=== PATIENT | female | born 1950 | race Caucasian/White ===

== ENCOUNTER 2017-07-21 09:34 | Day surgery (SDC) | payer OTHER, BC ==
[~2017-07-21] VITALS: Ht 170.2 cm; Wt 88.0 kg
[~2017-07-21 09:34] MED LIST: ASPIR 8181 M1 PO; ATORVASTATIN CA20 MG PO; BENADRYL25 MG PO; CALCIUM 600 MG1 EACH PO; CELEBREX200 MG PO; CEPHALEXIN500 MG PO; COUMADIN1 MG PO; CYMBALTA60 MG PO; DIOVAN HCT 31 TABLE1 PO; ENDOCET 5-3251 EACH PO; HYDROCODON-ACE1 EAC7 PO; IRON325 MG PO; JANUMET 50/51 TABLET PO; LIPITOR20 MG PO; LORTAB 5-325 M1 EACH PO; PLAQUENIL200 MG PO; ROCEPHIN2 GM/50 ML IV; TOPROL XL25 MG PO; VALSARTAN-HCTZ1 EAC3 PO; VANCOMYCIN1 GM/250 M IV; VITAMIN B-12250 MCG PO; VITAMIN B-6200 MG PO; ZESTRIL2.5 MG PO; ZOFRAN ODT8 MG PO
[2017-07-21 10:25] LABS: POINT-OF-CARE METER ID UU14174212
[2017-07-21 18:11] LABS: POINT-OF-CARE METER ID UU13113675; POINT-OF-CARE USER ID 515036437
[2017-07-21 19:10] VITALS: BP 143/81
[2017-07-21 20:57] VITALS: BP 147/67
[2017-07-21 21:15] VITALS: BP 127/59
== END 2017-07-21 21:20 | disposition home or self-care (01) ==
LOC: SDC 09:34
PROVIDERS: Podiatrist Foot & Ankle Surgery
DX: M19.072 Primary osteoarthritis, left ankle and foot (principal); I25.10 Atherosclerotic heart disease of native coronary artery without angina pectoris; I10 Essential (primary) hypertension; E66.9 Obesity, unspecified; Z68.31 Body mass index [BMI] 31.0-31.9, adult; E11.65 Type 2 diabetes mellitus with hyperglycemia; E78.2 Mixed hyperlipidemia; R94.31 Abnormal electrocardiogram [ECG] [EKG]; R00.0 Tachycardia, unspecified; Z88.1 Allergy status to other antibiotic agents; Z87.891 Personal history of nicotine dependence
CPT/HCPCS: 73630; 76000; 82948; C1713; C1769; J0131; J1100; J1885; J2250; J2405; J2795; J3010; S0020

== ENCOUNTER 2018-01-12 22:04 | Inpatient (IN) | payer OTHER, BC ==
[~2018-01-12] VITALS: Ht 168.9 cm; Wt 83.1 kg
[2018-01-13 07:12] VITALS: BP 143/82
[2018-01-13 08:19] LABS: HEMOGLOBIN A1c (GLYCOHEMOGLOB) 6.6 % (Below 5.7)
[2018-01-13 12:21] LABS: HEMATOCRIT 34.9 % (36.0-46.0); MCH 36.1 PG (29.0-34.0); MCHC 33.2 G/DL (30.0-36.0); MCV 108.7 FL (83-99); RBC DIS.WIDTH-CV 11.9 % (11.8-14.6); RBC DIS.WIDTH-SD 47.7 % (39-53); WHITE BLOOD COUNT 7.1 K/uL (4.1-10.2)
[2018-01-13 13:07] LABS: HEMOGLOBIN 11.6 G/DL (11.9-15.5); RED BLOOD COUNT 3.21 M/uL (3.80-5.20)
[2018-01-13 15:34] VITALS: BP 128/85
[2018-01-13 20:23] VITALS: BP 106/67
[2018-01-14 00:14] VITALS: BP 120/67
[2018-01-14 04:32] VITALS: BP 116/61
[2018-01-14 06:21] LABS: HEMATOCRIT 39.7 % (36.0-46.0); HEMOGLOBIN 12.9 G/DL (11.9-15.5); MCV 109.7 FL (83-99)
[2018-01-14 06:33] LABS: CHLORIDE 103 MEQ/L (99-109); CREATININE 1.5 MG/DL (0.6-1.3); GFR ESTIMATE (CALCULATED) 37 mL/min/; GLUCOSE 151 mg/dL (70-99); POTASSIUM 4.4 MEQ/L (3.7-5.4); SODIUM 135 MEQ/L (136-147); UREA NITROGEN (BUN) 31 mg/dL (9-23)
[2018-01-14 08:32] VITALS: BP 121/69
[2018-01-14 12:10] VITALS: BP 117/77
[2018-01-14 15:59] VITALS: BP 136/67
[2018-01-14 20:13] VITALS: BP 130/69
[2018-01-15 00:07] VITALS: BP 134/73
[2018-01-15 04:11] VITALS: BP 150/73
[2018-01-15 06:44] LABS: HEMATOCRIT 37.5 % (36.0-46.0); HEMOGLOBIN 12.5 G/DL (11.9-15.5); MCV 109.6 FL (83-99)
[2018-01-15 08:06] VITALS: BP 119/72
[2018-01-15] MEDS ORDERED: DOCUSATE SODIU100 MG PO (08:24)
[2018-01-15] MEDS ORDERED: ENDOCET 5-3251 EACH PO (08:25)
[2018-01-15] MEDS ORDERED: LOVENOX40 MG/0.4 SC (08:25)
[2018-01-15 12:02] VITALS: BP 158/74
== END 2018-01-15 13:42 | DRG 470 ==
LOC: ENRESERV 22:04 → 2SOUTH 01-13 06:41 → ENRESERV 01-13 08:01 → 2SOUTH 01-13 14:55 → 3WEST 01-13 14:56 → 2SOUTH 01-13 16:00 → 3WEST 01-15 13:42
PROVIDERS: Orthopaedic Surgery
PROC: 0SRD0J9 Replacement of Left Knee Joint with Synthetic Substitute, Cemented, Open Approach (ICD-10-PCS; principal; 2018-01-13)
DX: M17.12 Unilateral primary osteoarthritis, left knee (principal); F33.9 Major depressive disorder, recurrent, unspecified; I10 Essential (primary) hypertension; E78.00 Pure hypercholesterolemia, unspecified; E11.9 Type 2 diabetes mellitus without complications; M21.162 Varus deformity, not elsewhere classified, left knee; E66.3 Overweight; K30 Functional dyspepsia; Z79.84 Long term (current) use of oral hypoglycemic drugs; Z68.29 Body mass index [BMI] 29.0-29.9, adult; Z98.1 Arthrodesis status; Z88.5 Allergy status to narcotic agent; Z88.1 Allergy status to other antibiotic agents; Z96.643 Presence of artificial hip joint, bilateral; Z96.651 Presence of right artificial knee joint; Z82.0 Family history of epilepsy and other diseases of the nervous system; Z82.3 Family history of stroke; Z80.49 Family history of malignant neoplasm of other genital organs
CPT/HCPCS: 73560; 80048; 82948; 83036; 85014; 85018; 85027; 94799; C1713; J0131; J1100; J1650; J1815; J1885; J2250; J2405; J2795; J3010; J7050; Q0175; S0020